=== PATIENT | male | born 1975 | race Caucasian/White ===

== ENCOUNTER 2018-07-09 10:28 | Emergency (ER) | payer OTHER ==
[~2018-07-09] VITALS: Ht 172.7 cm; Wt 95.3 kg
[~2018-07-09 10:28] MED LIST: OFLO5DRO4 OD; OMEP20CA9 PO; OXYC-323 PO; TIZA4TAB PO
[2018-07-09 10:55] VITALS: BP 144/70
[2018-07-09] MEDS ORDERED: PRED20TA PO (11:18)
--- NOTE | 2018-07-09 11:18 | PHYS DOC ---
Past Medical History Past Medical History: Anxiety, High Cholesterol, Unknown Additional Past Medical Histor: CHRONIC BACK PAIN Past Surgical History: Other Additional Past Surgical Histo: UNKNOWN Alcohol Use: None Drug Use: Marijuana Adult General Chief Complaint Chief Complaint: SKIN RASH/ABSCESS HPI HPI Patient is a 43 year old male presents to the ED complaining of rash to entire body 2 days ago. Patient states that him and his were cutting down steffanie and were exposed to poison alexandra. States the rash itches. States similar symptoms as per his exacerbations of poison alexandra in the past. Denies fever, conjunctivitis , chest pain, shortness of breath, abdominal pain, nausea/vomiting or fever. Review of Systems Review of Systems Constitutional: Denies fever or chills [] Eyes: Denies change in visual acuity, redness, or eye pain [] HENT: Denies nasal congestion or sore throat [] Respiratory: Denies cough or shortness of breath [] Cardiovascular: No additional information not addressed in HPI [] GI: Denies abdominal pain, nausea, vomiting, bloody stools or diarrhea [] : Denies dysuria or hematuria [] Musculoskeletal: Complains of rash. Denies back pain or joint pain [] Integument: Denies rash or skin lesions [] Neurologic: Denies headache, focal weakness or sensory changes [] All other systems were reviewed and found to be within normal limits, except as documented in this note. Current Medications Current Medications Current Medications Medications (Trade) Dose Ordered Sig/Vandana Start Time Stop Time Status Last Admin Dose Admin Methylprednisolone Sodium Succinate (SOLU-Medrol 125MG VIAL) 125 mg 1X ONCE 07/09/18 11:30 07/09/18 11:31 DC 07/09/18 11:18 125 MG Allergies Allergies Allergies Coded Allergies Type Severity Reaction Last Updated Verified No Known Drug Allergies 07/20/16 No Physical Exam Physical Exam Constitutional: Well developed, well nourished, no acute distress, non-toxic appearance. [] HENT: Normocephalic, atraumatic Neck: Normal range of motion, no tenderness, supple, no stridor. [] Cardiovascular:Heart rate regular rhythm, no murmur [] Lungs & Thorax: Bilateral breath sounds clear to auscultation []\ Skin: Warm, dry. Erythematous macular rash to upper and lower extremities, trunk and face consistent with poison alexandra. [] Neurologic: Alert and oriented X 3, normal motor function, normal sensory function, no focal deficits noted. [] Psychologic: Affect normal, judgement normal, mood normal. [] Current Patient Data Vital Signs Vital Signs Date Time Temp Pulse Resp B/P (MAP) Pulse Ox O2 Delivery O2 Flow Rate FiO2 07/09/18 10:55 98.3 95 18 144/70 (94) 98 Room Air 98.3 EKG EKG [] Radiology/Procedures Radiology/Procedures [] Course & Med Decision Making Course & Med Decision Making Pertinent Labs and Imaging studies reviewed. (See chart for details) Staff Physician Addendum: I was working in the ER during the course of this patient's visit. I was available for consultation as needed, but I was not directly involved in the care of this patient. John Castle DO Staff Physician Laenne Disclaimer Dragon Disclaimer This electronic medical record was generated, in whole or in part, using a voice recognition dictation system. Departure Departure Impression: Primary Impression: Rash Disposition: 01 HOME, SELF-CARE Condition: STABLE Referrals: NON,STAFF (PCP) Patient Instructions: Contact Dermatitis Scripts Prednisone (PREDNISONE) 20 Mg Tablet 2 TAB PO DAILY for 5 Days, #10 TAB Prov: JASON DELGADO 07/09/18 JASON DELGADO Jul 09, 2018 11:18 JOHN CASTLE DO Jul 10, 2018 06:22
[2018-07-09] MEDS ORDERED: methylPREDNISolone SOD SUCC PF 125 MG/2 ML VIAL. IM ONE (11:30)
== END 2018-07-09 11:25 | disposition home or self-care (01) ==
LOC: ER 10:28
DX: R21 Rash and other nonspecific skin eruption (principal); F41.9 Anxiety disorder, unspecified; E78.00 Pure hypercholesterolemia, unspecified; G89.29 Other chronic pain
CPT/HCPCS: 96372; 99283; J2930

== ENCOUNTER 2018-07-18 05:00 | Emergency (ER) | payer OTHER ==
[~2018-07-18] VITALS: Ht 175.3 cm; Wt 98.4 kg
[2018-07-18 05:00] VITALS: BP 155/91
[~2018-07-18 05:00] MED LIST changes: +PRED20TA PO
[2018-07-18] MEDS ORDERED: LORA10TA3 PO (05:15)
[2018-07-18] MEDS ORDERED: PRED20TA PO (05:15)
[2018-07-18] MEDS ORDERED: DEXAMETHASONE SOD PHOS 4 MG/ML VIAL IM ONE (05:15)
[2018-07-18] MEDS ORDERED: HYDR25TA PO (05:15)
--- NOTE | 2018-07-18 05:25 | PHYS DOC ---
Past Medical History Past Medical History: Anxiety, High Cholesterol, Unknown Additional Past Medical Histor: CHRONIC BACK PAIN Past Surgical History: Other Additional Past Surgical Histo: UNKNOWN Alcohol Use: None Drug Use: Marijuana Adult General Chief Complaint Chief Complaint: SKIN RASH/ABSCESS HPI HPI Patient is a 43 year old male who presents with poison alexandra. Patient complains of rash over the arms and legs and torso. He has been having symptoms over the last couple of weeks. He did have an exposure to known poison alexandra. He was previously treated in an emergency department and given a 5 day course of prednisone. His symptoms improved during this treatment time, but did return immediately after the prednisone course was completed. No respiratory involvement. No dyspnea. No wheezes. No fever. Review of Systems Review of Systems Constitutional: Denies fever Eyes: Denies change in visual acuity HENT: Denies nasal congestion Respiratory: Denies cough or shortness of breath GI: Denies abdominal pain Musculoskeletal: Denies back pain Integument: Denies rash or skin lesions Neurologic: Denies headache All other systems were reviewed and found to be within normal limits, except as documented in this note. Current Medications Current Medications Current Medications Medications (Trade) Dose Ordered Sig/Vandana Start Time Stop Time Status Last Admin Dose Admin Dexamethasone Sodium Phosphate (Decadron) 8 mg 1X ONCE 07/18/18 05:15 07/18/18 05:16 DC Allergies Allergies Allergies Coded Allergies Type Severity Reaction Last Updated Verified No Known Drug Allergies 07/20/16 No Physical Exam Physical Exam Constitutional: Well developed, well nourished, no acute distress, non-toxic appearance HENT: Normocephalic, atraumatic, bilateral external ears normal, oropharynx moist Eyes: PERRLA, EOMI, conjunctiva normal Lungs & Thorax: Bilateral breath sounds clear Skin: Erythematous papular rash over the arms and legs. At places, the papules coalesce to form a cluster and sometimes appear urticarial. Occasional vesicles are present. Extremities: No edema Neurologic: Alert and oriented X 3 Psychologic: Affect normal Current Patient Data Vital Signs Vital Signs Date Time Temp Pulse Resp B/P (MAP) Pulse Ox O2 Delivery O2 Flow Rate FiO2 07/18/18 05:00 98.1 89 18 155/91 (112) 98 Room Air 98.1 EKG EKG [] Radiology/Procedures Radiology/Procedures [] Course & Med Decision Making Course & Med Decision Making Pertinent Labs and Imaging studies reviewed. (See chart for details) Patient has physical exam findings consistent with contact dermatitis. He had a known exposure to poison alexandra. He improved when previously treated with prednisone but the course of treatment was simply too short. In the ER this morning, the patient was given 8 mg of Decadron intramuscularly. Plan is for discharge home. He is placed on hydroxyzine, loratadine, and extended prednisone taper. He will follow-up with his primary care doctor or return to the ER for any new or worsening symptoms. Dragon Disclaimer Dragon Disclaimer This electronic medical record was generated, in whole or in part, using a voice recognition dictation system. Departure Departure Impression: Primary Impression: Contact dermatitis Disposition: HOME, SELF-CARE Condition: GOOD Patient Instructions: Contact Dermatitis, Cocm-[id number] Scripts Loratadine (LORATADINE) 10 Mg Tablet 10 MG PO DAILY, #14 TAB Prov: JOHN PARIS DO 07/18/18 Prednisone (PREDNISONE) 20 Mg Tablet 1 TAB PO DAILY, #26 TAB Take 3 tablets by mouth with breakfast daily for 4 days. Then take 2 tablets daily for 4 days. Then take 1 tablet daily for 4 days. Then take 1/2 daily until gone. Prov: JOHN PARIS DO 07/18/18 Hydroxyzine Hcl (HYDROXYZINE HCL) 25 Mg Tablet 1 TAB PO TID PRN for ITCHING, #21 TAB Prov: JOHN PARIS DO 07/18/18 JOHN PARIS DO Jul 18, 2018 05:25
== END 2018-07-18 05:41 | disposition home or self-care (01) ==
LOC: ER 05:00
DX: L25.9 Unspecified contact dermatitis, unspecified cause (principal); G89.29 Other chronic pain; M54.9 Dorsalgia, unspecified; F12.10 Cannabis abuse, uncomplicated
CPT/HCPCS: 96372; 99283; J1100

== ENCOUNTER 2019-04-24 15:34 | Emergency (ER) | payer OTHER ==
[~2019-04-24] VITALS: Ht 175.3 cm; Wt 105.7 kg
[~2019-04-24 15:34] MED LIST changes: +HYDR25TA PO; +LORA10TA3 PO; +OMEP20CA10 PO; -OMEP20CA9 PO; -OXYC-323 PO; +OXYC1TAB15 PO
[2019-04-24 15:47] VITALS: BP 145/76
--- NOTE | 2019-04-24 16:17 | PHYS DOC ---
Past Medical History Past Medical History: Anxiety, High Cholesterol, Unknown Additional Past Medical Histor: CHRONIC BACK PAIN Past Surgical History: Other Additional Past Surgical Histo: UNKNOWN Alcohol Use: None Drug Use: Marijuana Adult General Chief Complaint Chief Complaint: THUMB HPI HPI Patient is a 44 year old male that presents to ER after cutting his R 1st digit on an exhaust pipe yesterday around 3:30 PM. The patient states he cleaned out the wound at home but then his work sent him here to get checked out. States his Tetanus shot is up to date. Rates his pain as 5/10 and throbbing. Attempted to glue at home which came off. Review of Systems Review of Systems Constitutional: Denies fever or chills [] Eyes: Denies change in visual acuity, redness, or eye pain [] HENT: Denies nasal congestion or sore throat [] Respiratory: Denies cough or shortness of breath [] Cardiovascular: No additional information not addressed in HPI [] GI: Denies abdominal pain, nausea, vomiting, bloody stools or diarrhea [] : Denies dysuria or hematuria [] Musculoskeletal: Denies back pain or joint pain [] Integument: Denies rash or skin lesions with exception of laceration. Neurologic: Denies headache, focal weakness or sensory changes [] Endocrine: Denies polyuria or polydipsia [] Complete systems were reviewed and found to be within normal limits, except as documented in this note. Allergies Allergies Allergies Coded Allergies Type Severity Reaction Last Updated Verified No Known Drug Allergies 07/20/16 No Physical Exam Physical Exam Constitutional: Well developed, well nourished, no acute distress, non-toxic appearance. [] HENT: Normocephalic, atraumatic, bilateral external ears normal, oropharynx moist, no oral exudates, nose normal. [] Eyes: PERRLA, EOMI, conjunctiva normal, no discharge. [] Neck: Normal range of motion, no tenderness, supple, no stridor. [] Cardiovascular:Heart rate regular rhythm, no murmur [] Lungs & Thorax: Bilateral breath sounds clear to auscultation [] Abdomen: Bowel sounds normal, soft, no tenderness, no masses, no pulsatile masses. [] Skin: Warm, dry, no erythema, no rash. Has 0.5 cm laceration to R thumb that was filleted by exhaust pipe. Back: No tenderness, no CVA tenderness. [] Extremities: No tenderness, no cyanosis, no clubbing, ROM intact, no edema. [] Neurologic: Alert and oriented X 3, normal motor function, normal sensory function, no focal deficits noted. [] Psychologic: Affect normal, judgement normal, mood normal. [] Current Patient Data Vital Signs Vital Signs Date Time Temp Pulse Resp B/P (MAP) Pulse Ox O2 Delivery O2 Flow Rate FiO2 04/24/19 15:47 98.2 82 20 145/76 (99) 98 Room Air 98.2 EKG EKG [] Radiology/Procedures Radiology/Procedures [] Course & Med Decision Making Course & Med Decision Making Pertinent Labs and Imaging studies reviewed. (See chart for details) Cut is outside the window for intervention. Will advise patient to keep Neosporin on cut. Bleeding is controlled. Dragon Disclaimer Dragon Disclaimer This electronic medical record was generated, in whole or in part, using a voice recognition dictation system. Departure Departure Impression: Primary Impression: Laceration Disposition: 01 HOME, SELF-CARE Condition: STABLE Referrals: UNKNOWN PCP NAME (PCP) Patient Instructions: Laceration Care, Adult Additional Instructions: Please keep wound clean. Keep Neosporin on the wound. Follow up with Primary Care Provider. Come back to ER if signs of infection. BREANNE JJ APRN Apr 24, 2019 16:17
== END 2019-04-24 16:42 | disposition home or self-care (01) ==
LOC: ER 15:34
DX: S61.011A Laceration without foreign body of right thumb without damage to nail, initial encounter (principal); E78.00 Pure hypercholesterolemia, unspecified; G89.29 Other chronic pain; Y28.8XXA Contact with other sharp object, undetermined intent, initial encounter; Y93.89 Activity, other specified; Y92.89 Other specified places as the place of occurrence of the external cause; Y99.8 Other external cause status
CPT/HCPCS: 99281